=== PATIENT | male | born 1980 | race Caucasian/White ===

== ENCOUNTER 2024-08-10 10:21 | Outpatient (CLI) | payer OTHER, SELFPAY ==
--- NOTE | 2024-08-10 10:32 | XR_ITS ---
WS: [id number] XR elbow RT min 3V* [id number] REASON FOR EXAM: slipped and fell from semi-trailer FINDINGS: No joint effusion. No acute fracture. Normal radial head, coronoid, trochlea. Joint spaces of the elbow are intact and well preserved. No radiopaque soft tissue foreign body. XR/XR elbow RT min 3V* [id number] IMPRESSION: No acute abnormality.
--- NOTE | 2024-08-10 10:32 | XR_ITS ---
WS: [id number] XR shoulder RT min 2V* [id number] REASON FOR EXAM: slipped and fell from semi-trailer FINDINGS: No acute fracture. Normal right clavicle. Normal acromioclavicular joint alignment. Glenohumeral joint space not optimally demonstrated but intact likely without significant narrowing. XR/XR shoulder RT min 2V* [id number] IMPRESSION: No acute abnormality as above.
== END 2024-08-10 10:22 | disposition home or self-care (01) ==
PROVIDERS: PCP Physician Assistant Medical; Visit Provider Emergency Medicine
DX: M25.521 Pain in right elbow (principal); M25.511 Pain in right shoulder
CPT/HCPCS: 73030; 73080

== ENCOUNTER 2024-09-01 12:04 | Outpatient (CLI) | payer OTHER, SELFPAY ==
--- NOTE | 2024-09-01 12:15 | MR_ITS ---
WS: [id number] MRI RIGHT SHOULDER NONCONTRAST TECHNIQUE: Sagittal T2, coronal T1, T2 and proton density imaging. Axial gradient PDE imaging. CLINICAL INFORMATION: no improvement in right shoulder 20 days p injury at work COMPARISON: None. FINDINGS: Moderate degenerative arthritis AC joint with small amount of fluid and edema. Mild downsloping acromion with subacromial spurring. Trace subacromial and subdeltoid fluid. Impingement on the supraspinatus with tendinopathy. Tiny interstitial tear distally Normal infraspinatus. Normal teres minor. Normal subscapularis tendon. Normal biceps tendon in the bicipital groove. Normal intra-articular biceps tendon. Normal bone marrow signal in the humeral head and glenoid. Moderate degenerative narrowing of the glenohumeral articulation. MR/MR shoulder RT wo con* [id number] IMPRESSION: 1. Tendinopathy with tiny interstitial tear distal supraspinatus. 2. Moderate degenerative arthritis AC joint with subacromial spurring and impi ngement on the distal supraspinatus. Mild chronic thinning. 3. Rotator cuff is otherwise intact and normal in appearance. 4. Normal biceps tendon in the bicipital groove. 5. No other acute findings.
== END 2024-09-01 12:05 | disposition home or self-care (01) ==
PROVIDERS: PCP Physician Assistant Medical; Visit Provider Family Medicine
DX: S46.011A Strain of muscle(s) and tendon(s) of the rotator cuff of right shoulder, initial encounter (principal); X58.XXXA Exposure to other specified factors, initial encounter; Y99.0 Civilian activity done for income or pay; M19.011 Primary osteoarthritis, right shoulder; M75.32 Calcific tendinitis of left shoulder; M75.51 Bursitis of right shoulder; M75.41 Impingement syndrome of right shoulder
CPT/HCPCS: 73221